=== PATIENT | male | born 1970 | race Caucasian/White ===

== ENCOUNTER 2021-02-17 11:39 | Emergency (ER) | payer OTHER ==
[2021-02-17 11:57] VITALS: BP 138/87; PULSE 61; TEMP 97.9; BMI 34.7
[2021-02-17 15:30] LABS: BASO % 0.5 % (0-2.0); EOS % 3.4 % (0-4.5); HEMATOCRIT 36.2 % (35.4-49); LYMPH % 23.9 % (8-40); MCH 28.4 pg (25.7-33.7); MCHC 33.2 g/dl (32.0-35.9); MEAN CELL VOLUME 85.4 fl (80-96); MEAN PLT VOLUME 8.8 fl (7.5-11.1); MONO % 12.4 % (3.8-10.2); NEUT % 59.8 % (42.8-82.8); PLATELET COUNT 236 K/MM3 (134-434); RBC 4.24 M/mm3 (4.00-5.60); RDW 13.9 % (11.9-15.9); WHITE BLOOD COUNT 5.4 K/mm3 (4.0-10.0)
[2021-02-17 15:42] LABS: INR 1.13 (0.83-1.09); PROTHROMBIN TIME (PATIENT) 13.6 SEC (9.7-13.0)
[2021-02-17 15:44] LABS: ACTIVATED PTT 54.6 SECONDS (25.2-36.5)
[2021-02-17 15:56] LABS: ALBUMIN 4.2 g/dl (3.4-5.0); CALCIUM 9.2 mg/dL (8.5-10.1)
[2021-02-17 15:57] LABS: BLOOD UREA NITROGEN 14.1 mg/dL (7-18); MAGNESIUM 1.9 mg/dL (1.8-2.4)
[2021-02-17 16:01] LABS: BILIRUBIN,TOTAL 0.5 mg/dL (0.2-1); TOT PROT 8.9 g/dl (6.4-8.2)
== END 2021-02-17 16:20 | disposition home or self-care (01) ==
LOC: JER 11:39
DX: I82.461 Acute embolism and thrombosis of right calf muscular vein (principal)
CPT/HCPCS: 36415; 80053; 83735; 85025; 85379; 85610; 85730; 99283-25